=== PATIENT | male | born 1975 | race Caucasian/White ===

== ENCOUNTER 2016-09-19 23:21 | Emergency (ER) | payer OTHER ==
--- NOTE | 2016-09-19 23:46 | ERPHSYRPT ---
- History of Present Illness Time Seen by Provider: 09/19/16 23:33 Source: patient, other (N.N.) Exam Limitations: no limitations Patient Subjective Stated Complaint: Pt sts drinking tonight, sts "quite a bit" . Unknown how much alcohol. Sts drinking [place]. Pt sts here because he was "being beligerent, I wasn't listening and being an asshole". Triage Nursing Assessment: Pt alert, able to state name, date of . Pt able to state year, current location. Pt speech slurred however appropriate. Pt ambulatory in custody of police. Steady gait noted. Physician History: PT WAS BROUGHT IN BY POLICE FOR [employer] CLEARANCE. REPORTEDLY PT HAS BEEN DRINKING BEER TONIGHT. PT DENIES CHEST PAIN, SHORTNESS OF AIR, VOMITING, FEVER. Allergies/Adverse Reactions: amoxicillin Allergy (Verified 09/19/16 23:26) Home Medications: No Reportable Medications [No Reported Medications] 09/19/16 [History] Hx Tetanus, Diphtheria Vaccination/Date Given: Yes - Review of Systems Constitutional: No Fever Respiratory: No Dyspnea Cardiac: No Chest Pain Abdominal/Gastrointestinal: No Abdominal Pain, No Vomiting Neurological: No Headache All Other Systems: Reviewed and Negative - Past Medical History Pertinent Past Medical History: Yes Other Medical History: tourettes - Past Surgical History Past Surgical History: No - Social History Smoking Status: Current every day smoker How long have you smoked: 28 Exposure to second hand smoke: No Drug Use: none Patient Lives Alone: No - Nursing Vital Signs Nursing Vital Signs: Initial Vital Signs Temperature 98.1 F Temperature Source Oral Pulse Rate 98 Respiratory Rate 16 Blood Pressure [Left Arm] 106/40 Pain Intensity 0 - Physical Exam General Appearance: alert Eye Exam: PERRL/EOMI Ears, Nose, Throat Exam: TMs normal, pharynx normal, moist mucous membranes Neck Exam: normal inspection Respiratory Exam: lungs clear Cardiovascular Exam: normal heart sounds Gastrointestinal/Abdomen Exam: soft, normal bowel sounds Back Exam: normal range of motion Extremity Exam: normal range of motion, No pedal edema Neurologic Exam: alert, cooperative Skin Exam: No cyanosis SpO2 Interpretation: normal SpO2: 97 Oxygen Delivery: Room Air - Course Nursing assessment & vital signs reviewed: Yes - Departure Departure Disposition: Snf/Senior Living Clinical Impression: ALCOHOL INTOXICATION Condition: Stable Critical Care Time: No Instructions: Alcohol Abuse and Alcoholism Additional Instructions: FOLLOW UP WITH PRIVATE DOCTOR TOMORROW. AVOID ALCOHOLIC BEVERAGES.
[2016-09-20 00:08] VITALS: BP 133/71; PULSE 96; O2SAT 96
== END 2016-09-19 23:50 | disposition home or self-care (01) ==
LOC: ED 23:21
DX: F10.129 Alcohol abuse with intoxication, unspecified (principal)
CPT/HCPCS: 99281

== ENCOUNTER 2017-07-16 23:21 | Emergency (ER) | payer OTHER ==
[2017-07-16] MEDS ORDERED: XYLOCAINE 1% HCL 20 ML MDV IJ ONE (23:55)
--- NOTE | 2017-07-17 00:16 | ERPHSYRPT ---
- History of Present Illness Time Seen by Provider: 07/17/17 00:12 Source: patient, family Exam Limitations: no limitations Patient Subjective Stated Complaint: states tripped in his front yard cutting his left wrist on something on the ground.. staets he tripped over his boots Triage Nursing Assessment: alert and intoxicated. laceration to left wrist with active bleeding. able to move all fingers. + radial pulse present Physician History: pt sustained lac to left volar wrist , tendon and neurovasc intact - tet up to date per pt. no other c/o injuries or symptoms full ROM at wrist and nontender. Occurred: just prior to arrival Method of Injury: fell, incised Quality: constant Severity of Pain-Max: moderate Severity of Pain-Current: moderate Extremities Pain Location: wrist: left Modifying Factors: Improves With: movement Associated Symptoms: none Allergies/Adverse Reactions: amoxicillin Allergy (Verified 09/19/16 23:26) Hx Tetanus, Diphtheria Vaccination/Date Given: Yes Immunizations Up to Date: Yes - Review of Systems Constitutional: No Fever, No Chills Eyes: No Symptoms Ears, Nose, & Throat: No Symptoms Respiratory: No Cough, No Dyspnea Cardiac: No Chest Pain, No Edema, No Syncope Abdominal/Gastrointestinal: No Abdominal Pain, No Nausea, No Vomiting, No Diarrhea Genitourinary Symptoms: No Dysuria Musculoskeletal: No Back Pain, No Neck Pain Skin: Other (lac left volar wrist), No Rash Neurological: No Dizziness, No Focal Weakness, No Sensory Changes Psychological: No Symptoms Endocrine: No Symptoms All Other Systems: Reviewed and Negative - Past Medical History Pertinent Past Medical History: Yes Cardiac History: Other Respiratory History: Asthma Psycho-Social History: Other Other Medical History: tourettes ADHD, heart murmur - Past Surgical History Past Surgical History: No - Social History Smoking Status: Current every day smoker How long have you smoked: 28 Exposure to second hand smoke: Yes Drug Use: none Patient Lives Alone: No - Nursing Vital Signs Nursing Vital Signs: Pain Scale Pain Intensity 7 - Physical Exam General Appearance: alert Eyes, Ears, Nose, Throat Exam: moist mucous membranes Neck Exam: non-tender, supple Cardiovascular/Respiratory Exam: chest non-tender, normal breath sounds, regular rate/rhythm, no respiratory distress Abdominal Exam: non-tender, No guarding Back Exam: normal inspection, No vertebral tenderness Shoulder Exam: normal inspection, non-tender, no evidence of injury, normal ROM Elbow/Forearm Exam: normal inspection, non-tender, no evidence of injury, normal ROM Wrist Exam: pain (at lac volar) Hand Exam: normal inspection, non-tender, no evidence of injury, normal ROM Neuro/Tendon Exam: normal sensation, normal motor functions Mental Status Exam: alert, oriented x 3, cooperative Skin Exam: normal color, warm, dry Procedures - Splinting Location of Splint: Left, Hand, Wrist, Forearm Type of Splint: Orthoglass Short Arm Splint Splint Applied By: ED Nurse Pre-Proc Neuro Vasc Exam: normal Post-Proc Neuro Vasc Exam: neurovascular intact Progress: splinted at 30 degrees flexion at wrist and 45 degrees flexion MCP as requested by Dr. tucker with dorsal splint. - Laceration/Wound Repair Left Wrist Wound Location: Left, wrist Wound Length (cm): 6 Wound's Depth, Shape: into muscle, linear, into subcut Wound Explored: no foreign body noted Irrigated: Yes (ns 200 cc) Hibiclens Prep: Yes Anesthesia: 1% Lidocaine Volume Anesthetic (ccs): 4.0 Wound Debrided: minimal Wound Repaired With: sutures Suture Size/Type: 4-0, prolene, vicryl Number of Sutures: 8 (2 SQ and 8 external) Layer Closure?: Yes Deep Layer Suture Size/Type: 4:0 Number Deep Layer Sutures: 2 Sterile Dressing Applied?: Yes Splint Applied?: Yes Type of Splint Applied: velcro Sling Applied?: No - Course Nursing assessment & vital signs reviewed: Yes - Radiology Exams Left Wrist X-ray Interpretation: Reviewed by me, No Fracture (no FB seen) Ordered Tests: Active Orders 24 hr Category Date Time Status Prepare for Sutures STAT Care 07/16/17 23:55 Active Sutures STAT Care 07/16/17 23:56 Active Wound Care STAT Care 07/16/17 23:55 Active WRIST (MIN 3 VIEWS) Stat Exams 07/17/17 12:53 Taken Medication Summary Discontinued Medications Generic Name Dose Route Start Last Admin Trade Name Freq PRN Reason Stop Dose Admin Bacitracin Confirm 07/17/17 01:44 Baciguent Packet Administered 07/17/17 01:45 Dose 1 gm .ROUTE .STK-MED ONE Lidocaine HCl 5 ml 07/16/17 23:55 07/17/17 00:43 Xylocaine 1% Hcl 20 Ml Mdv IJ 07/16/17 23:56 5 ml STAT ONE Administration Lidocaine HCl Confirm 07/17/17 00:42 Xylocaine 1% Hcl 20 Ml Mdv Administered 07/17/17 00:43 Dose 1 ml .ROUTE .STK-MED ONE - Progress Progress: improved, re-examined Progress Note: 07/17/17 02:[address] Tucker and he will see pt in clinic Tuesday to evqal his tendon lacs for definitive tx. Discussed with Dr.: Other (dr tucker) Will see patient in: office Counseled pt/family regarding: diagnosis, need for follow-up, rad results - Departure Time of Disposition: 01:42 Departure Disposition: Home Clinical Impression: Laceration of left wrist with tendon involvement Condition: Good Critical Care Time: No Referrals: DOCTOR,NO FAMILY [Primary Care Provider] - Instructions: Laceration Repair With Stitches (DC) Additional Instructions: call the [facility] clinic tuesday to get an appointment for clinic _ Dr. Tucker this is very important because you have tendons cut and if not properly treated could lose some use of your hand. Return meantime if any concerns. Prescriptions: Cephalexin Mh 500 mg [Keflex 500 mg] 500 mg PO TID #30 capsule
[2017-07-17] MEDS ORDERED: XYLOCAINE 1% HCL 20 ML MDV ONE (00:42)
[2017-07-17] MEDS ORDERED: BACIGUENT PACKET ONE (01:44)
[2017-07-17] MEDS ORDERED: KEFLEX 500 MG PO ONE (02:11)
[2017-07-17] MEDS ORDERED: KEFLEX 500 MG ONE (02:15)
[2017-07-17] MEDS ORDERED: BACIGUENT PACKET TP ONE (06:15)
[2017-07-17 06:39] VITALS: O2SAT 99
[2017-07-17 06:42] VITALS: BP 132/78; PULSE 89
--- NOTE | 2017-07-17 08:47 | XRAY ---
Indication: Laceration following fall. Comparison: None 3 views of the left wrist demonstrates anterior distal forearm laceration. No other bony, articular, or soft tissue abnormalities.
== END 2017-07-17 02:36 | disposition home or self-care (01) ==
LOC: ED 23:21
PROC: 0HQGXZZ Repair Left Hand Skin, External Approach (ICD-10-PCS; principal; 2017-07-17)
PROC: 2W3DX1Z Immobilization of Left Lower Arm using Splint (ICD-10-PCS; 2017-07-17)
DX: S61.512A Laceration without foreign body of left wrist, initial encounter (principal); S66.822A Laceration of other specified muscles, fascia and tendons at wrist and hand level, left hand, initial encounter; W22.8XXA Striking against or struck by other objects, initial encounter; W18.30XA Fall on same level, unspecified, initial encounter
CPT/HCPCS: 12002; 29126; 73110; 96372; 99283; 99284; A9270-GY

== ENCOUNTER 2020-10-26 16:12 | Emergency (ER) | payer OTHER ==
[2020-10-26 16:23] VITALS: BP 139/75; PULSE 98; O2SAT 98
[2020-10-26] MEDS ORDERED: XYLOCAINE 1%/Epi 1:100000 MDV 20 ML IJ ONE (17:00)
[2020-10-26] MEDS ORDERED: XYLOCAINE 1%/Epi 1:100000 MDV 20 ML ONE (17:01)
[2020-10-26] MEDS ORDERED: Flagyl 500 MG PO ONE (17:06)
[2020-10-26] MEDS ORDERED: Vibramycin 100 MG PO ONE (17:06)
--- NOTE | 2020-10-26 17:07 | ERPHSYRPT ---
- History of Present Illness Time Seen by Provider: 10/26/20 16:15 Source: patient Exam Limitations: no limitations Patient Subjective Stated Complaint: pt here for dog bite to lower legs, he states hit was hes neighbors dog,pt has puncuture wounds to both legs Triage Nursing Assessment: pt alert, walked in, resp easy, mask applied, skin w/d/p, has puncutre wounds to both lower legs Physician History: 44 years old male presented in the ER with chief complaint of neighbors pitbull dog bite which was unprovoked. Patient reports multiple bites with loss of skin on the left lower medial thigh and superficial abrasions and skin tear right anterior lower leg. Unsure about tetanus status. Complaining of moderate intensity sharp pain with palpation, movement/walking and better with being still. There was bleeding initially but stopped with pressure prior to arrival. Does not have any difficulty movements of arm/ankle. Timing/Duration: today, sudden Quality: painful Severity: moderate Location: extremities Possible Causes: other (Dog bite) Associated Symptoms: swelling/mass/lumps Allergies/Adverse Reactions: amoxicillin Allergy (Verified 10/26/20 16:26) Home Medications: Buprenorphine HCl/Naloxone HCl [Suboxone 8 mg-2 mg Tablet Sl] 1 ea DAILY 10/26/20 [History] Hx Tetanus, Diphtheria Vaccination/Date Given: No Hx Influenza Vaccination/Date Given: No Hx Pneumococcal Vaccination/Date Given: No Immunizations Up to Date: Yes Travel Risk - International Travel Have you traveled outside of the country in past 3 weeks: No - Coronavirus Screening Are you exhibiting any of the following symptoms?: No Close contact with a COVID-19 positive Pt in past 14-21 Days: No - Vaccine Status Have you recieved a Covid-19 vaccination: No - Review of Systems Constitutional: No Symptoms Eyes: No Symptoms Ears, Nose, & Throat: No Symptoms Respiratory: No Symptoms Cardiac: No Symptoms Abdominal/Gastrointestinal: No Symptoms Genitourinary Symptoms: No Symptoms Musculoskeletal: Injury Skin: Skin Lesions Neurological: No Symptoms Psychological: No Symptoms Endocrine: No Symptoms Hematologic/Lymphatic: No Symptoms Immunological/Allergic: No Symptoms - Past Medical History Pertinent Past Medical History: Yes Cardiac History: Other Respiratory History: Asthma Psycho-Social History: Other Other Medical History: tourettes ADHD, heart murmur - Past Surgical History Past Surgical History: No - Social History Smoking Status: Current every day smoker How long have you smoked: 28 Exposure to second hand smoke: Yes Drug Use: none Patient Lives Alone: No - Nursing Vital Signs Nursing Vital Signs: Initial Vital Signs Temperature 97.9 F 10/26/20 16:19 Pulse Rate 98 H 10/26/20 16:19 Respiratory Rate 18 10/26/20 16:19 Blood Pressure 139/75 10/26/20 16:19 O2 Sat by Pulse Oximetry 98 10/26/20 16:19 Pain Scale Pain Intensity 8 - Physical Exam General Appearance: no apparent distress Eye Exam: eyes nml inspection Neck Exam: normal inspection, supple, full range of motion Respiratory Exam: normal breath sounds, lungs clear Cardiovascular Exam: regular rate/rhythm, normal heart sounds Extremity Exam: other (Multiple abrasions right anterior leg below knee with superficial skin tear. Multiple lacerations left lower medial thigh with a 2 cm area diameter loss of skin. Other laceration on the lower aspect 2 cm and third one 3 cm without any active bleeding/spotting. Minimal tenderness. Distal neurovas) Skin Exam: normal color SpO2 Interpretation: normal SpO2: 98 O2 Delivery: Room Air Procedures - Laceration/Wound Repair Left Thigh Time of Procedure: 17:05 Wound Location: Left, upper leg Wound Length (cm): 8 Wound's Depth, Shape: into muscle, linear, irregular Wound Explored: clean Irrigated: Yes Hibiclens Prep: Yes Anesthesia: 1% lidocaine w/ Epi Volume Anesthetic (ccs): 7 Wound Debrided: minimal Wound Repaired With: sutures Suture Size/Type: 4-0, nylon Number of Sutures: 8 Layer Closure?: No Sterile Dressing Applied?: Yes Splint Applied?: Yes Ordered Tests: Medication Summary Discontinued Medications Generic Name Dose Route Start Last Admin Trade Name Freq PRN Reason Stop Dose Admin Diphtheria/Tetanus/Acell Pertussis 0.5 ml 10/26/20 17:10 Adacel Vial IM 10/26/20 17:11 .ONCE ONE Diphtheria/Tetanus/Acell Pertussis Confirm 10/26/20 17:12 Adacel Vial Administered 10/26/20 17:13 Dose 0.5 ml IM .STK-MED ONE Doxycycline Hyclate 100 mg 10/26/20 17:06 Vibramycin 100 Mg PO 10/26/20 17:07 STAT ONE Doxycycline Hyclate Confirm 10/26/20 17:11 Vibramycin 100 Mg Administered 10/26/20 17:12 Dose 100 mg .ROUTE .STK-MED ONE Lidocaine/Epinephrine 10 ml 10/26/20 17:00 Xylocaine 1%/Epi 1:080542 Mdv 20 Ml IJ 10/26/20 17:01 STAT ONE Lidocaine/Epinephrine Confirm 10/26/20 17:01 Xylocaine 1%/Epi 1:902242 Mdv 20 Ml Administered 10/26/20 17:02 Dose 10 ml .ROUTE .STK-MED ONE Metronidazole 250 mg 10/26/20 17:06 Flagyl 500 Mg PO 10/26/20 17:07 STAT ONE Metronidazole Confirm 10/26/20 17:12 Flagyl 500 Mg Administered 10/26/20 17:13 Dose 500 mg .ROUTE .STK-MED ONE - Progress Progress: improved Progress Note: 10/26/20 17:24 Laceration repair with loose stitching. Started him on doxy and Flagyl. Tetanus is updated. Discussed wound care and infection in detail needing return to ER which he seems understanding. Paperwork will be faxed to health department/animal control. Counseled pt/family regarding: diagnosis, need for follow-up - Departure Departure Disposition: Home Clinical Impression: Dog bite Qualifiers: Encounter type: initial encounter Qualified Code(s): W54.0XXA - Bitten by dog, initial encounter Thigh laceration Qualifiers: Encounter type: initial encounter Laterality: left Qualified Code(s): S71.112A - Laceration without foreign body, left thigh, initial encounter Condition: Stable Critical Care Time: No Referrals: DOCTOR,NO FAMILY [Primary Care Provider] - DEWEY JOHNSON [ACTIVE STAFF] - Follow Up with PCP/3 days Instructions: Animal Bites (DC) Additional Instructions: Keep it clean, wash with Dial soap. Continue with antibiotics. Take Tylenol/ibuprofen as needed for pain. Avoid exertional activities. Follow-up with primary care for reevaluation. Return to ER for worsening pain, swelling, redness, discharge, fever chills or difficulty movements of knee etc. Prescriptions: Ibuprofen 600 mg PO Q6HPRN PRN 10 Days #20 tablet PRN Reason: Pain Metronidazole 500 mg [Flagyl 500 MG] 500 mg PO TID #21 tablet Doxycycline Hyclate 100 mg [Vibramycin 100 MG] 100 mg PO BID #14 tab
[2020-10-26] MEDS ORDERED: Adacel Vial IM ONE ×2 (17:10→17:12)
[2020-10-26] MEDS ORDERED: Vibramycin 100 MG ONE (17:11)
[2020-10-26] MEDS ORDERED: Flagyl 500 MG ONE (17:12)
[2020-10-26] MEDS ORDERED: BACIGUENT PACKET TP ONE (17:30)
== END 2020-10-26 17:44 | disposition home or self-care (01) ==
LOC: ED 16:12
DX: S71.112A Laceration without foreign body, left thigh, initial encounter (principal); W54.0XXA Bitten by dog, initial encounter
CPT/HCPCS: 12004; 90471; 90715; 96372; 99284; A9270-GY